=== PATIENT | male | born 1985 | race African-American/Black ===

== ENCOUNTER 2022-02-27 16:43 | Emergency (ER) | payer OTHER ==
[~2022-02-27] VITALS: Ht 200.7 cm; Wt 111.1 kg
--- NOTE | 2022-02-27 18:54 | NUR ---
Pt left W/O being seen by .
== END 2022-02-27 18:56 | disposition left against medical advice (07) ==
LOC: ER 16:43
DX: Z53.21 Procedure and treatment not carried out due to patient leaving prior to being seen by health care provider (principal)